=== PATIENT | female | born 1980 | race American Indian/Alaskan Native ===

== ENCOUNTER 2017-03-26 09:16 | Emergency (ER) | payer MEDICAID ==
[2017-03-26 09:16] VITALS: BMI 40.1
--- NOTE | 2017-03-26 10:07 | C.PDOC ---
History Of Present Illness 37 y/o female pmhx asthma presents to the ED with complains of body aches, sore throat, bilateral ear pain and fever x2 days. Pt denies dysuria, SOB or any other complaints. Time Seen by Provider: 03/26/17 09:31 Chief Complaint (Nursing): ENT Problem History Per: Patient History/Exam Limitations: no limitations Onset/Duration Of Symptoms: Days Current Symptoms Are (Timing): Still Present Severity: Moderate Recent travel outside of the [place]: No Past Medical History Reviewed: Historical Data, Nursing Documentation, Vital Signs Vital Signs: Last Vital Signs Temp 102.8 F H 03/26/17 09:23 Pulse 100 H 03/26/17 09:23 Resp 20 03/26/17 09:23 BP 115/73 03/26/17 09:23 Pulse Ox 96 03/26/17 10:11 - Medical History PMH: Asthma, Bronchitis, Gastritis, GERD Family History: States: Unknown Family Hx - Social History Hx Tobacco Use: No Hx Alcohol Use: No Hx Substance Use: No - Immunization History Hx Tetanus Toxoid Vaccination: No Hx Influenza Vaccination: No Hx Pneumococcal Vaccination: No Review Of Systems Except As Marked, All Systems Reviewed And Found Negative. Constitutional: Positive for: Fever, Other (body aches) ENT: Positive for: Ear Pain, Throat Pain Respiratory: Negative for: Shortness of Breath Gastrointestinal: Negative for: Vomiting Genitourinary: Negative for: Dysuria Physical Exam - Physical Exam Additional Physical Exam Comments: Constitutional: No acute distress. Head: Normocephalic. Atraumatic. Eyes: PERRL. ENT: Moist mucous membranes. TMs normal. Throat without erythema, +exudate. Neck: Supple. Cardiovascular: Borderline tachycardia. Radial pulses 2+ bilaterally. Chest: No tenderness. Respiratory: Clear to auscultation bilaterally. GI: Soft. Nontender. Nondistended. Back: No CVA tenderness. Musculoskeletal: No tenderness or swelling of extremities. Skin: No rash. Neurologic: Alert, no focal deficit. ED Course And Treatment O2 Sat by Pulse Oximetry: 96 (room air) Pulse Ox Interpretation: Normal Medical Decision Making Medical Decision Making: Plan: Acetaminophen, check influenza swab, rapid strep. Will not initiate sepsis workup as symptoms are consistent with viral syndrome in a generally young healthy patient who has borderline tachycardia in the setting of fever. Disposition - Disposition Disposition: HOME/ ROUTINE Disposition Time: 11:07 Condition: STABLE Prescriptions: Amoxicillin 1 tab PO BID #20 tablet Instructions: Strep Throat (ED) Forms: Work Excuse - Clinical Impression Clinical Impression: Strep throat - Scribe Statement The provider has reviewed the documentation as recorded by the Ninfa Maciel Provider Attestation: All medical record entries made by the Ninfa were at my direction and personally dictated by me. I have reviewed the chart and agree that the record accurately reflects my personal performance of the history, physical exam, medical decision making, and the department course for this patient. I have also personally directed, reviewed, and agree with the discharge instructions and disposition.
--- NOTE | 2017-03-26 10:08 | C.PDOC ---
History Of Present Illness Constitutional: No acute distress. Head: Normocephalic. Atraumatic. Eyes: PERRL. ENT: Moist mucous membranes. Neck: Supple. Cardiovascular: Regular rate. Radial pulses 2+ bilaterally. Chest: No tenderness. Respiratory: Clear to auscultation bilaterally. GI: Soft. Nontender. Nondistended. Back: No CVA tenderness. Musculoskeletal: No tenderness or swelling of extremities. Skin: No rash. Neurologic: Alert, no focal deficit. Time Seen by Provider: 03/26/17 09:31 Chief Complaint (Nursing): ENT Problem Past Medical History Vital Signs: Last Vital Signs Temp 102.8 F H 03/26/17 09:23 Pulse 100 H 03/26/17 09:23 Resp 20 03/26/17 09:23 BP 115/73 03/26/17 09:23 Pulse Ox 96 03/26/17 09:23 - Medical History PMH: Asthma, Bronchitis, Gastritis, GERD Family History: States: Unknown Family Hx - Social History Hx Tobacco Use: No Hx Alcohol Use: No Hx Substance Use: No - Immunization History Hx Tetanus Toxoid Vaccination: No Hx Influenza Vaccination: No Hx Pneumococcal Vaccination: No ED Course And Treatment O2 Sat by Pulse Oximetry: 96
[2017-03-26 11:21] VITALS: BP 110/79; PULSE 90; RESP 16; TEMP 99; O2SAT 98
== END 2017-03-26 11:20 | disposition home or self-care (01) ==
LOC: C.ER 09:16
DX: J02.0 Streptococcal pharyngitis (principal); B95.0 Streptococcus, group A, as the cause of diseases classified elsewhere